=== PATIENT | male | born 1990 ===

== ENCOUNTER 2023-07-06 12:00 | Outpatient (CLI) | payer BC, SELFPAY ==
--- NOTE | 2023-07-06 10:45 | DI.RAD_ITS ---
Exam(s) XR KNEE LT 3V AP,LAT,ERWIN EXAM: XR KNEE LT 3V AP,LAT,ERWIN CLINICAL HISTORY: LEFT KNEE PAIN. TECHNIQUE: 2D digital imaging was performed. Three views. COMPARISON: No exams were available for comparison FINDINGS: BONES: No acute fracture is present. No bony destructive lesion is seen. JOINTS: The knee is normally aligned. No joint effusion is seen. Joint spaces are maintained. No d egenerative changes SOFT TISSUE: Swelling anterior to the tibial tubercle, l likely reflecting bursitis. IMPRESSION: Marked soft tissue swelling anterior to the tibial tubercle, likely reflecting bursitis DATA REPOSITORY: RADIATION DOSE DELIVERED:
== END 2023-07-06 12:01 | disposition home or self-care (01) ==
LOC: DIORS 12:00
PROVIDERS: PCP Internal Medicine; Visit Provider Student in an Organized Health Care Education/Training Program
DX: R22.42 Localized swelling, mass and lump, left lower limb (principal); M25.562 Pain in left knee
CPT/HCPCS: 73562